=== PATIENT | male | born 1990 | race American Indian/Alaskan Native ===

== ENCOUNTER 2024-10-18 12:27 | Emergency (ER) | payer BC ==
[~2024-10-18] VITALS: Ht 172.7 cm; Wt 78.8 kg
[2024-10-18 13:41] LABS: EOSINOPHILS % (AUTO) 0.6 % (0-6); HEMATOCRIT 44.5 % (42.0-52.0); HEMOGLOBIN 14.9 g/dl (14.0-17.9); LYMPHOCYTES # (AUTO) 1.5 X10'3 (1.1-4.8); LYMPHOCYTES % (AUTO) 38.8 % (21-51); MEAN CORPUSCULAR HEMOGLOBIN 27.4 PG (27.0-31.0); MEAN CORPUSCULAR HGB CONC 33.5 g/dL (33.0-36.5); MEAN CORPUSCULAR VOLUME 81.8 FL (78-98); MEAN PLATELET VOLUME 7.9 FL (7.4-10.4); MONOCYTES # (AUTO) 0.2 X10'3 (0-0.9); MONOCYTES % (AUTO) 6.4 % (2-12); NEUTROPHILS % (AUTO) 53.2 % (42-75); PLATELET COUNT 299 X10'3 (140-440); RED BLOOD COUNT 5.45 X10'6 (4.70-6.10); RED CELL DISTRIBUTION WIDTH 14.2 % (11.5-14.5); WHITE BLOOD COUNT 3.8 X10'3 (4.5-11.0)
--- NOTE | 2024-10-18 13:45 | Physician Documentation ---
History of Present Illness ~ Chief Complaint: ETOH Stated Complaint: ETOH Time Seen by MD: 12:47 OK to notify your PCP?: Yes Source: patient, RN/MD, EMS, RN notes reviewed, EMS notes reviewed Mode of Arrival: EMS Exam Limitations: no limitations HPI 34 year old male with history of MS seen in bed 07 presents to the emergency department via EMS for complaints of ETOH. Patient was found laying on the ground passed out. Patient states he was feeling hot and dizzy. Patient denies any palpitations. Of note patient also states that when he had fallen over he had scraped his knees. Patient denies any other associated symptoms at this time. Patient denies any other alleviating or exacerbating factors. Medication Reconciliation Allergies: Coded Allergies: No Known Allergies (Unverified , 10/18/24) Past Medical History Past Medical History: Multiple Sclerosis Past Surgical History: no surgical history Alcohol Use: Heavy Review of Systems All Other Systems at this time: Reviewed and Negative ROS As stated above in the HPI, otherwise all systems are reviewed and negative. Physical Exam Vital Signs: RN Vital Signs have been reviewed: Yes, Temperature: 98.2, Source: Oral, Heart Rate: 110, Respiratory Rate: 18, BP: 130/90, Pulse Oximetry: 94, Weight: 78.800 Pulse Oximetry Reflects: adequate oxygenation Physical Exam General: The patient is weak, well nourished, nontoxic appearing and is in no acute distress. Skin: [place], warm and dry with no rashes. HEENT: Head was normocephalic and atraumatic. Eyes - pupils equal, round, reactive to light and accommodation. Extraocular movements were intact. Conjunctivae were nonicteric. Ears - bilateral tympanic membranes were normal. The mouth and oropharynx were clear with moist mucous membranes. There were no pharyngeal exudates or erythema. Neck: Supple and nontender. There was no jugular venous distention, lymphadenopathy, thyromegaly or masses. Chest: Clear to auscultation bilaterally without wheezes, rales or rhonchi. No accessory muscle use. No dullness to percussion. Heart: Rate regular and rhythmic. S1, S2. No murmurs. Palpation of the chest wall was normal. No rubs or thrills. Abdomen: Soft, nontender and nondistended. Positive bowel sounds. No guarding or rebound. No hepatosplenomegaly or palpable masses. Extremities: The patient has bilateral knee abrasions. No cyanosis, clubbing or edema. The patient moves all extremities. Pulses were equal and symmetric. Neurologic: Cranial nerves II-XII were intact. Sensation was intact to light touch throughout. Motor strength was 5/5 in all four extremities. Deep tendon reflexes were intact in both upper and lower extremities. Psychologic: The patient was oriented to person, place and time. The patient demonstrated appropriate judgement and insight. Progress Results/Orders Reviewed/noted all lab results: Yes Results/Orders Orders - PRICE STEVENSON MD Electrocardiogram (10/18/24 13:41) Monitor (10/18/24 13:41) Saline Lock (10/18/24 13:41) Completed Orders - PRICE STEVENSON MD Cbc/Diff (10/18/24 12:43) CMP (10/18/24 12:43) Drug Screen, Urine (10/18/24 13:24) Pt Inr (10/18/24 13:41) PTT (10/18/24 13:41) Electrocardiogram (10/18/24 13:41) Normal Saline 1000ml (Sodium Chloride 10 (10/18/24 13:45) Lipase (10/18/24 13:07) MG (10/18/24 13:07) CK (10/18/24 13:07) Myoglobin (10/18/24 13:07) Ethanol (10/18/24 16:22) Vital Signs 10/18/24 10/18/24 10/18/24 10/18/24 12:37 12:50 13:55 14:57 Temp 98.2 98.2 98.2 Pulse 110 107 89 Resp 17 18 18 22 B/P (MAP) 130/90 122/87 (99) 132/89 (103) Pulse Ox 94 96 94 10/18/24 10/18/24 15:44 17:22 Temp 98.2 Pulse 94 Resp 15 B/P (MAP) 117/77 (90) Pulse Ox 94 O2 Flow Rate 0 Laboratory Tests Test 10/18/24 13:07 10/18/24 13:37 White Blood Count 3.8 L Red Blood Count 5.45 Hemoglobin 14.9 Hematocrit 44.5 Mean Corpuscular Volume 81.8 Mean Corpuscular Hemoglobin 27.4 Mean Corpuscular Hemoglobin Concent 33.5 Red Cell Distribution Width 14.2 Platelet Count 299 Mean Platelet Volume 7.9 Neutrophils (%) (Auto) 53.2 Lymphocytes (%) (Auto) 38.8 Monocytes (%) (Auto) 6.4 Eosinophils (%) (Auto) 0.6 Basophils (%) (Auto) 1.0 Neutrophils # (Auto) 2.0 Lymphocytes # (Auto) 1.5 Monocytes # (Auto) 0.2 Eosinophils # (Auto) 0.0 Basophils # (Auto) 0.0 CBC Comment Prothrombin Time 10.2 INR International Normalized Ratio 1.0 Activated Partial Thromboplast Time 27 Coagulation Comments Sodium Level 144 Potassium Level 3.6 Chloride Level 107 Carbon Dioxide Level 26.3 Anion Gap 11 Blood Urea Nitrogen 7 Creatinine 0.85 Estimated GFR/1.73 m2 > 90 BUN/Creatinine Ratio 8.2 L Glucose Level 118 H Calcium Level 8.2 L Magnesium Level 2.4 Total Bilirubin 0.2 Aspartate Amino Transf (AST/SGOT) 22 Alanine Aminotransferase (ALT/SGPT) 26 Alkaline Phosphatase 99 Total Creatine Kinase 198 Myoglobin 80.0 Total Protein 7.4 Albumin 3.7 Globulin 3.7 Albumin/Globulin Ratio 1.0 L Lipase 39 Chemistry Comments Ethyl Alcohol Level 337 H Urine Opiates Screen Negative Urine Methadone Screen Negative Urine Fentanyl Screen Negative Urine Barbiturates Screen Negative Urine Phencyclidine Screen Negative Urine Amphetamines Screen Negative Urine Benzodiazepines Screen Negative Urine Cocaine Screen Negative Urine Cannabinoids Screen Negative Drug Screen Comment Re-Evaluation Re-Evaluation : Re-Evaluation: Improved Progress Patient was seen and examined. Patient is given reassurance. Patient is intoxicated but does not appear to be in any withdrawal symptoms at this time. He is a heavy drinker. Laboratory work was obtained he has a questionable synco pe found down with multiple etiologies possible infection, trauma, intoxication versus cardiac such as SVT or other arrhythmias may have led to the patient being found down and then sequelae of such fall such as infection, intracranial bleed, electrolyte abnormalities, rhabdomyolysis. Laboratory work was obtained chemistry was reassuring and within within normal limits. CBC within normal limits tox screen was negative alcohol is positive at 337. Coagulation within normal limits. Patient was allowed to metabolize and rest. He also received L bolus. Ultimately he improved was requesting to go home he has a safe disposition. There is no signs of arrhythmias while On the monitor. Continuous structural analysis engineer interpretation shows sinus tachycardia heart rate 100s, abnormal, my interpretation. Pulse oximetry monitor interpretation shows normal oxygenation at 94% room air, normal, my interpretation. EKG/XRAY/CT/US/VASC/MRI EKG : Additional Comment [facility] Test Date: 2024-10-18 Test Time: 13:49:34 Pat Name: DONAVON MAGALLANES Department: [facility]- Patient ID: 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 Reading MD: Dr. Price Stevenson Measurements Intervals [place] Rate: 100 P: 15 MT: 158 QRS: -2 QRSD: 78 T: 34 QT: 355 QTc: 458 Interpretive Statements Sinus tachycardia Electronically Signed On 10-18-2024 15:55:[address] Price Stevenson Please click the below link to view image of tracing. EKG Date and Time:10/18/24 1349 Electronically Signed by: PRICE STEVENSON MD Date and Time: 10/18/24 1555 Medical Decision Making Additional info obtained from: old records Differential Dx:Considerations: Intoxication - ETOH, Intoxication - other drug, Sub. Abuse -continuous, Sub. Abuse-intermittent, Personality disorder, Closed head injury, Cervical spine injury, Abrasion, Confusion, Hematoma, Laceration, Foreign body, Dehydration, Encephalopathy, Other Departure Time of Disposition: 16:55 Disposition: 01 HOME / SELF CARE / HOMELESS Impression: Primary Impression: Heat exposure Qualified Codes: T67.9XXA - Effect of heat and light, unspecified, initial encounter Additional Impressions: Fall Qualified Codes: W19.XXXA - Unspecified fall, initial encounter Alcohol intoxication Qualified Codes: F10.920 - Alcohol use, unspecified with intoxication, uncomplicated Abrasion of knee, bilateral Condition: Stable Discharge Instructions: Alcohol Intoxication Referrals: NO PRIMARY CARE PROVIDER (PCP) Education Educated: Patient Educated regarding: diagnosis, treatment, prognosis, need for follow up Signature Scribe Signature: Scribed for Price Stevenson MD by Harrison Adhikari . 10/18/24 14:22 Attestation: The note accurately reflects work and decisions made by me.Price Stevenson MD 10/18/24 13:45 PRICE STEVENSON MD Oct 18, 2024 13:45 HARRISON MOHR Oct 18, 2024 14:22
--- NOTE | 2024-10-18 13:50 | ELECTROCARDIOGRAPH REPORT ---
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 Chuy Zhang Measurements Intervals [place] Rate: 100 P: 15 NM: 158 QRS: -2 QRSD: 78 T: 34 QT: 355 QTc: 458 Interpretive Statements Sinus tachycardia Electronically Signed On 10-18-2024 15:55:[address] Chuy Zhang Please click the below link to view image of tracing.
[2024-10-18 13:56] LABS: APTT 27 SECONDS (22-32); PROTHROMBIN TIME 10.2 SECONDS (9.0-12.0)
[2024-10-18 13:58] LABS: ALANINE AMINOTRANSFERASE 26 U/L (12-78); ALBUMIN 3.7 G/DL (3.4-5.0); ALKALINE PHOSPHATASE 99 IU/L (46-116); ANION GAP 11 (8-16); ASPARTATE AMINO TRANSFERASE 22 U/L (10-37); BILIRUBIN,TOTAL 0.2 MG/DL (0.1-1.0); BLOOD UREA NITROGEN 7 MG/DL (7-18); BUN/CREATININE RATIO 8.2 (10.0-20.0); CALCIUM 8.2 MG/DL (8.5-10.1); CHLORIDE 107 MMOL/L (99-107); CREATININE 0.85 MG/DL (0.60-1.10); GLUCOSE 118 MG/DL (70-104); LIPASE 39 U/L (16-77); MAGNESIUM 2.4 MG/DL (1.5-2.4); POTASSIUM 3.6 MMOL/L (3.5-5.1); SODIUM 144 MMOL/L (135-145); TOTAL CARBON DIOXIDE 26.3 MMOL/L (24-32); TOTAL PROTEIN 7.4 G/DL (6.4-8.2); eCRCL 117 ML/MIN; eGFR > 90 ML/MIN
[2024-10-18] MEDS: normal saline 1000ML IV soln IVB ONE (14:02)
[2024-10-18 14:08] LABS: URINE AMPHETAMINE SCREEN NEGATIVE (Neg); URINE BARBITUATE SCREEN NEGATIVE (Neg); URINE BENZODIAZEPINES SCREEN NEGATIVE (Neg); URINE CANNABINOID SCREEN NEGATIVE (Neg); URINE COCAINE SCREEN NEGATIVE (Neg); URINE METHADONE SCREEN NEGATIVE (Neg); URINE OPIATE SCREEN NEGATIVE (Neg); URINE PHENCYCLIDINE SCREEN NEGATIVE (Neg)
[2024-10-18 14:39] LABS: CREATINE KINASE 198 U/L (39-308)
[2024-10-18 15:44] VITALS: BP 117/77; PULSE 94; RESP 15; O2SAT 94
[2024-10-18 17:22] VITALS: TEMP 98.2
== END 2024-10-18 17:23 | disposition home or self-care (01) ==
LOC: ER 12:28
DX: T67.5XXA Heat exhaustion, unspecified, initial encounter (principal); S80.212A Abrasion, left knee, initial encounter; S80.211A Abrasion, right knee, initial encounter; F10.129 Alcohol abuse with intoxication, unspecified; W18.30XA Fall on same level, unspecified, initial encounter; Y93.89 Activity, other specified; Y92.89 Other specified places as the place of occurrence of the external cause; Y99.8 Other external cause status; Y90.9 Presence of alcohol in blood, level not specified
CPT/HCPCS: 36415; 80053; 80305; 80320; 82550; 83690; 83735; 83874; 85025; 85610; 85730; 93005; 96360; 99284; J7030